=== PATIENT | male | born 1990 | race Caucasian/White ===

== ENCOUNTER 2022-04-20 11:19 | Emergency (ER) | payer OTHER ==
[~2022-04-20] VITALS: Ht 185.4 cm; Wt 95.6 kg
[2022-04-20] MEDS ORDERED: ONDANSETRON 4MG/2ML VIAL IV ONE (13:40)
[2022-04-20] MEDS ORDERED: NS 1,000 ML IV ONE (13:40)
[2022-04-20 14:16] LABS: BASO # 0.1 10^3/uL (0.0-0.2); BASO % 0.7 % (0.0-1.0); EOS # 0.1 10^3/uL (0.0-0.5); EOS % 1.6 % (0.0-3.0); HEMATOCRIT 47.4 % (42.0-52.0); HEMOGLOBIN 15.6 g/dl (13.5-17.5); LYMPH # 1.3 10^3/uL (1.5-5.0); MEAN CORPUSCULAR HEMOGLOBIN 28.6 pg (27.0-33.0); MEAN CORPUSCULAR HGB CONC 32.9 g/dl (32.0-36.5); MONO # 1.1 10^3/uL (0.0-0.8); MONO % 16.3 % (2.0-8.0); NEUTROPHILS # 4.1 10^3/uL (1.5-8.5); NEUTROPHILS % 61.3 % (36.0-66.0); PLATELET COUNT, AUTOMATED 326 10^3/uL (150-450); RED BLOOD COUNT 5.45 10^6/uL (4.30-6.10); WHITE BLOOD COUNT 6.7 10^3/uL (4.0-10.0)
[2022-04-20 14:35] LABS: ERYTHROCYTE SEDIMENTATION RATE 6 mm/hr (0-15)
[2022-04-20 14:40] LABS: BLOOD UREA NITROGEN 14 MG/DL (7-18); CALCIUM LEVEL 9.3 MG/DL (8.5-10.1); CARBON DIOXIDE LEVEL 31 MEQ/L (21-32); CHLORIDE LEVEL 107 MEQ/L (98-107); CREATININE FOR GFR 0.98 MG/DL (0.70-1.30); GLOMERULAR FILTRATION RATE > 60.0 (>60); GLUCOSE, FASTING 92 MG/DL (70-100); POTASSIUM SERUM 4.1 MEQ/L (3.5-5.1); SODIUM LEVEL 140 MEQ/L (136-145)
[2022-04-20 14:43] LABS: BILIRUBIN,DIRECT 0.2 MG/DL (0.0-0.2); BILIRUBIN,TOTAL 0.5 MG/DL (0.2-1.0); TOTAL PROTEIN 7.5 GM/DL (6.4-8.2)
[2022-04-20] MEDS ORDERED: ISOVUE-370 76% 100ML VIAL As Ordered ONE (14:49)
[2022-04-20 15:54] VITALS: BP 108/59
== END 2022-04-20 15:56 | disposition home or self-care (01) ==
LOC: M ED 11:19
DX: K52.9 Noninfective gastroenteritis and colitis, unspecified (principal)
CPT/HCPCS: 74177; 80048; 80076; 83690; 85025; 85652; 86140; 96361; 96374; 99284; J2405; Q9967